=== PATIENT | female | born 1965 | race Caucasian/White ===

== ENCOUNTER 2024-04-02 14:06 | Outpatient (REF) | payer OTHER, SELFPAY | END 2024-04-02 14:07 | disposition home or self-care (01) | LOC: HO.HHCLNP 14:06 | PROVIDERS: Visit Provider Physician Assistant | DX: R07.0 Pain in throat (principal) | CPT/HCPCS: 87070 ==

== ENCOUNTER 2025-01-25 10:22 | Outpatient (REF) | payer BC, SELFPAY ==
[2025-01-25 10:41] LABS: MANUAL DIFF FLAG NO
[2025-01-25 11:13] LABS: Basophils Absolute Auto 0.1 X10*3/uL (0.0-0.2); Basophils Percent Auto 1.2 % (0-2); Eosinophils Absolute Auto 0.1 X10*3/uL (0.0-0.4); Eosinophils Percent Auto 1.2 % (0-4); Hematocrit 36.1 % (37.0-47.0); Hemoglobin 12.6 g/dl (12.0-16.0); Imm Gran Abs Auto 0.02 X10*3/uL (0.00-0.03); Imm Gran Pct Auto 0.4 % (0.0-0.4); Lymphocytes Percent Auto 35.5 % (20-40); Mean Corpuscular HGB Conc 34.9 g/dl (31.0-35.0); Mean Corpuscular Hemoglobin 33.1 pg (27.0-33.0); Mean Corpuscular Volume 94.8 fL (80.0-98.0); Mean Platelet Volume 10.2 fL (9.4-12.3); Monocytes Absolute Auto 0.5 X10*3/uL (0.1-1.2); Monocytes Percent Auto 9.4 % (2-11); Neutrophils Absolute Auto 2.9 x10*3/uL (2.0-8.3); Neutrophils Percent Auto 52.3 % (45-73); Platelet Count 323 X10*3/uL (160-400); Red Blood Count 3.81 X10*6/uL (4.20-5.50); White Blood Count 5.6 X10*3/uL (4.8-10.8)
[2025-01-25 11:45] LABS: Alanine Aminotransferase 12 U/L (0-31); Albumin Level 4.3 g/dL (3.5-5.0); Alkaline Phosphatase 72 U/L (39-117); Anion Gap 11 (12-20); Aspartate Amino Transferase 19 U/L (5-31); Bilirubin Total 1.3 mg/dL (0.0-1.0); Blood Urea Nitrogen 11 mg/dL (9-16); Carbon Dioxide 21 mmol/L (22-29); Chloride 106 mmol/L (96-108); Cholesterol 232 mg/dL (<200); Estimated Glomerular Filt Rate > 60; Glucose Random 102 mg/dL (60-115); HDL Cholesterol 56 mg/dL (>40); Iron 101 mcg/dL (30-160); LDL Cholesterol Calculated 157 mg/dL (<100); Percent Iron Saturation 30 % (15-50); Potassium 3.9 mmol/L (3.3-5.1); Sodium 134 mmol/L (135-145); Total Iron Binding Capacity 334 mcg/dL (228-428); Total Protein 7.5 g/dL (6.5-8.0); Triglycerides 99 mg/dL (<150); Unsaturated Iron Binding 233 ug/dL
[2025-01-25 12:16] LABS: Folate 6.6 ng/mL (> or = 4.0); Vitamin B12 870 pg/mL (200-900)
== END 2025-01-25 10:23 | disposition home or self-care (01) ==
LOC: HO.LAB 10:22
PROVIDERS: PCP Internal Medicine; Visit Provider Physician Assistant
DX: E53.8 Deficiency of other specified B group vitamins (principal); E87.5 Hyperkalemia; D50.8 Other iron deficiency anemias; I10 Essential (primary) hypertension
CPT/HCPCS: 36415; 80053; 80061; 82607; 82746; 83540; 85025

== ENCOUNTER 2025-09-03 14:45 | Outpatient (REF) | payer BC, SELFPAY ==
--- OUTSIDE RECORDS SUMMARY | 2024-05-06 03:30 | XMS_ITS ---
Author Organization [facility] Address [address] [facility] [address] [place] [address] Care Team Providers Care Food Service Steward Name Role Phone Cas Canseco DO Primary Care Provider CONRAD Lorenzo Unavailable [phone] Allergies Allergen (clinical drug ingredient) Drug/Non Drug Allergy documented on EMR Reaction Allergy Type Onset Date Status lisinopril Lisinopril cough Drug Allergy Activ e REASON FOR VISIT Right foot great toe pain Medications Medication SIG (Take, Route, Frequency, Duration) Notes Start Date End Date Status hydroCHLOROthiazide 12.5 MG 1 tablet in the morning Orally Once a day Active Omeprazole 40 MG 1 capsule 30 minutes before morning meal Orally Once a day Active SUMAtriptan Succinate 25 MG 1 tablet at least 2 hours between doses as needed Orally Twice a day Active Losartan Potassium-HCTZ 100-12.5 MG 1 tablet Orally Once a day Active Timoptic 0.5% solution Active Lisinopril 40 MG 1 tablet Orally Once a day Active Fluorometholone 0.1 % 1 drop into affected eye Ophthalmic Twice a day Active Naproxen 500 MG 1 tablet with food or milk as needed Orally every 12 hrs Active Acyclovir 400 MG 1 tablet Orally Twice a day Active oxyCODONE HCl 5 MG 1 tablet as needed Orally every 6 hrs Active Benzonatate 200 MG 1 capsule Orally Three times a day Active Ofloxacin 0.3 % as directed Ophthalmic Active predniSONE 10 MG 1 tablet Orally Once a day Active Aspirin 81 MG 1 tablet Orally Once a day Active Celecoxib 200 MG 1 capsule with food Orally Once a day Active Vitamin D3 25 MCG (1000 UT) 1 capsule Or ally Once a day Active Albuterol Sulfate HFA 108 (90 Base) MCG/ACT 1 puff as needed Inhalation every 4 hrs Active Dorzolamide HCl-Timolol Mal 2-0.5 % 1 drop into affected eye Ophthalmic Twice a day Active Famotidine 20 MG 1 tablet at bedtime as needed Orally Once a day Active Encounters Encounter Location Date Provider Diagnosis [facility] [address] [facility] [address] [place] [address] 05/06/2024 CONRAD WHITTAKER Plan Of Treatment No Information Progress Notes * Galileo ROCHAOB:1965 (60 yo F)Acc No.[id number]:05/06/2024 Consult note Patient: Marquez JIM Provider: Vivian Whittaker DPM :1965 A ge:58 Y S ex:Female Date:05/06/2024 Address:[address] [place] [id number] Pcp:Cas Canseco DO Subjective: * Chief Complaints: * 1 . Right foot great toe pain. * Medical History: H erpes zoster of right eye, Pain of left shoulder joint, Pain of left hip joint, Cough, gastroesophageal reflux disease (GERD), Vocal cord dysfunction, Laryngitis, Migraine, Breast cancer, Disorder of lung, Hypertension, Insomnia, Glaucoma, Cataract s/p lens replacement, Laryngopharyngeal reflux, Herpes labialis, Fatigue, Acute pharyngitis, Iron deficiency anemia, Pain in right foot, + COVID, COVID vaccinated X 4. * Surgical History: k bakari arthroscopy/surgery 12/28/2018, eye surgery 10/30/2013, breast surgery , . * Family History: S iblings: sister- breast cancer. * Medications: T aking Vitamin D3 25 MCG (1000 UT) Capsule 1 capsule Orally Once a day , Taking Albuterol Sulfate HFA 108 (90 Base) MCG/ACT Aerosol Solution 1 puff as needed Inhalation every 4 hrs , Taking Dorzolamide HCl-Timolol Mal 2-0.5 % Solution 1 drop into affected eye Ophthalmic Twice a day , Taking Famotidine 20 MG Tablet 1 tablet at bedtime as needed Orally Once a day , Taking Benzonatate 200 MG Capsule 1 capsule Orally Three times a day , Taking Ofloxacin 0.3 % Solution as directed Ophthalmic , Taking predniSONE 10 MG Tablet 1 tablet Orally Once a day , Taking Aspirin 81 MG Tablet Delayed Release 1 tablet Orally Once a day , Taking Celecoxib 200 MG Capsule 1 capsule with food Orally Once a day , Taking oxyCODONE HCl 5 MG Tablet 1 tablet as needed Orally every 6 hrs , Taking Lisinopril 40 MG Tablet 1 tablet Orally Once a day , Taking Fluorometholone 0.1 % Suspension 1 drop into affected eye Ophthalmic Twice a day , Taking Naproxen 500 MG Tablet 1 tablet with food or milk as needed Orally every 12 hrs , Taking Acyclovir 400 MG Tablet 1 tablet Orally Twice a day , Taking hydroCHLOROthiazide 12.5 MG Tablet 1 tablet in the morning Orally Once a day , Taking Omeprazole 40 MG Capsule Delayed Release 1 capsule 30 minutes before morning meal Orally Once a day , Taking SUMAtriptan Succinate 25 MG Tablet 1 tablet at least 2 hours between doses as needed Orally Twice a day , Taking Losartan Potassium- HCTZ 100-12.5 MG Tablet 1 tablet Orally Once a day , Taking Timoptic , Notes to Pharmacist: 0.5% solution * Allergies: L isinopril: cough. Objective: * Vitals: Therapeutic Interventions: Assessment: Plan: * Treatment: * Billing Information: * Visit Code: * Procedure Codes: * Electronic signature of OMID WHITTAKER D.P.M on 09/03/2025 at 05:51 PM EST Sign off status: Pending * Provider: Vivian Whittaker DPM Date: 0 05/06/2024 Generated for Barbara andersen/Nghia/Molly on: 11/03/2024 05:51 PM EST
--- NOTE | ~2025-09-03 | XR_ITS ---
EXAMINATION: XR CHEST 2 VIEWS HISTORY: ACUTE COUGH COMPARISON: There are no prior studies available for comparison. FINDINGS: PA and lateral views of the chest are submitted. The lungs are expanded and clear. There is no pleural effusion, pneumothorax, or pulmonary vascular congestion. The heart is normal in size. The bones are intact. There are surgical clips in the right axilla. XR/XR chest 2V IMPRESSION: Clear lungs. Electronically signed by: Preet Ko MD 09/03/2025 03:16 PM JAJA
--- OUTSIDE RECORDS SUMMARY | 2025-09-03 17:51 | XMS_ITS | Clinical Summary ---
Author Organization [facility] Address [address] [place] [address] Phone Care Team Providers Care Pc Maintenance Technician Name Role Phone Liza Pradhan MD Unavailable [phone] Cas Canseco DO Unavailable Cas Canseco DO Primary Care Provider [phone] Allergies Active Allergy Reactions Criticality Noted Date Comments Lisinopril 09/07/2020 Other reaction(s): Cough Medications acyclovir (ZOVIRAX) 400 MG tablet Take 400 mg by mouth 2 (two) times a day. 5 Active LORazepam (ATIVAN) 0.5 MG tablet Take 1 tablet by mouth nightly as needed. 0 Active fluorometholone (FML LIQUIFILM) 0.1 % ophthalmic suspension Place 1 drop into the right eye daily. 4 Active timolol (BETIMOL) 0.5 % ophthalmic solution Place 1 drop into the right eye daily. 5 Active losartan (COZAAR) 100 MG tablet losartan 100 mg tablet Active SUMAtriptan (IMITREX) 25 MG tabletIndicatio ns:as needed for migraines Indications: as needed for migraines Active omeprazole (PRILOSEC) 20 MG capsule Take 20 mg by mouth daily. 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 Overview (12/20/2014): Corticosteroid-induced glaucoma Herpes zoster 04/17/2013 Overview (12/20/2014): Herpes zoster; 5/11 Dry eyes 04/17/2013 Overview (12/20/2014): Dry eyes; SEVERE Uncoded H/O HTN - Hypertension 04/17/2013 Overview (12/20/2014): H/O HTN - Hypertension; NO LONGER AN ISSUE WITH NO MEDICATION Fatigue 04/17/2013 Overview (12/20/2014): Fatigue Keratitis 04/17/2013 Overview (12/20/2014): Keratitis; Right; STROMAL BRCA1 gene mutation negative 12/23/2012 Overview (12/20/2014): BRCA1 gene mutation negative BRCA2 gene mutation negative 12/23/2012 Overview (12/20/2014): BRCA2 gene mutation negative Pulmonary sarcoidosis 04/04/2012 Overview (12/20/2014): Pulmonary sarcoidosis Secondary malignant neoplasm 04/04/2012 Overview (12/20/2014): Metastatic cancer; Right; Supraclavicular node aspiration cytology positive Malignant neoplasm of right female breast 2002 Cancer Staging:Clinical stage from 08/15/2003:Stage IA(T1c, N0, M0) - Signed by Meet Franco MD on 06/18/2015 Pathologic stage from 10/06/2003:Stage IIA(T2, N0, cM0) - Signed by Meet Franco MD on 06/18/2015 Sites of Metastasis stage from 10/27/2006: Other Lung - Signed by Meet Franco MD on 06/18/2015 Indicators: HER 2: Negative, ER: Negative, AR: Negative - Signed by Meet Franco MD on 06/18/2015 Overview (12/20/2014): H/O Breast cancer; Right; S/P SURGERY. CHEMO, RADIATION Resolved Problems Problem Noted Date Diagnosed Date Resolved Date Glaucoma 11/07/2013 06/18/2015 Overview (12/20/2014): Glaucoma; Right; Shunt 08/02/2013 Immunizations Immunization Administration Dates Next Due COVID-19 (Pre-08/21) Pfizer Vaccine, mRNA, PF ,01/16/2021 Influenza Nasal, Unspecified Formulation 015 Pneumococcal polysaccharide PPSV23 09/05/2008 Family History Medical History Relation Comments Glaucoma Brother glaucoma Glaucoma Father glaucoma Ovarian cancer Paternal Aunt ovarian cancer Glaucoma Paternal Grandmother glaucoma Breast cancer Sister breast cancer Relation Status Comments Brother Father Paternal Aunt Paternal Grandmother Sister Social History Tobacco Use Types Packs/Day Years Used Date Smoking Tobacco: Former Cigarettes 1 5 0 06/18/1992 - 06/18/1997 Smokeless Tobacco: Never Alcohol Use Standard Drinks/Week Comments Not Asked 7 (1 standard drink = 0.6 oz pur e alcohol) Education Answer Date Recorded Are you interested in more education? Not on arlene e 03/04/2023 Are you concerned about learning? Not on file 03/04/2023 No 03/04/2023 No 03/04/2023 Digital Access Answer Date Recorded No 03/25/2023 No 03/25/2023 No 03/25/2023 Reliable internet access at home? Not on file 03/25/2023 Device with a working camera? Not on file Comments No Sex and Gender Information Value Date Recorded Sex Assigned at Female 11/06/2017 9:42 AM EST Legal Sex Female 5:47 PM EST Gender Identity Female Sexual Orientation Straight Last Filed Vital Signs Vital Sign Reading Time Taken Comments Blood Pressure 162/91 06/18/2015 10:48 AM EDT Pulse 59 06/18/2015 10:48 AM EDT Temperature 36.9 C (98.4 F) 06/18/2015 10:48 AM EDT Respiratory Rate 16 06/18/2015 10:48 AM EDT Oxygen Saturation - - Inhaled Oxygen Concentration - - Weight 75.8 kg (167 lb) 09/07/2020 9:30 AM EST Height 176 cm (5' 9.29 ) 09/07/2020 9:30 AM EST Body Mass Index 24.45 09/07/2020 9:30 AM EST Plan of Treatment Health Maintenance Due Date Last Done Comments DEPRESSION SCREENING 1975 SMOKING Hx and SMOKELESS TOBACCO SCREENING 1976 HEPATITIS C SCREENING 1981 HIV ONE-TIME SCREENING (18-65 YEARS) 1981 ZOSTER VACCINES (1 of 2) 1982 PAP SMEAR 1984 COLOGUARD 2008 COLONOSCOPY 2008 COLORECTAL CANCER SCREENING 2008 FIT TEST 2008 FOBT 2008 SIGMOIDOSCOPY 2008 VIRTUAL COLONOSCOPY 2008 PNEUMOCOCCAL VACCINES (50+ years) (2 of 2 - PCV) 09/05/2009 09/05/2008 RSV VACCINE (1 - Risk 50-74 years 1-dose series) 2013 MAMMOGRAM 06/18/2017 06/18/2015, 10/31, 04/30/2014, Additional history exists LIPID PANEL 01/15/2025 01/16/2020, 11/04/2009 INFLUENZA VACCINE (#1) 2025 , 08/30/2019, 08/29/2018 COVID-19 VACCINE ( season) 2025 02/06/2021, 01/16/2021 CREATININE LEVEL 02/24/2026 02/24/2025, 06/2013, 04/04/2012, Additional history exists POTASSIUM LEVEL 02/24/2026 02/24/2025, 07/0 06/2013, 04/04/2012, Additional history exists Adult Td,Tdap Booster 08/28/2030 08/28/2020 HEPATITIS A VACCINES Aged Out No long er eligible based on patient's age to complete this topic HIB VACCINES Aged Out No longer eligi ble based on patient's age to complete this topic MENINGOCOCCAL VACCINES (ACWY) Aged Out No longer eligible based on patient's age to complete this topic MENINGOCOCCAL VACCINES (B) Aged Out N o longer eligible based on patient's age to complete this topic Medical Devices Not on file Procedures Procedure Name Priority Date/Time Associated Diagnosis Comments COMPREHENSIVE METABOLIC PANEL (CMP) Routine 02/24/2025 10:39 AM EDT Diarrhea, unspecified type BI MAMMOGRAM SCREENING NO TOMOSYNTHESIS WITH CAD (BILATERAL) Routine 06/18/2015 9:43 AM EDT HISTORICAL LAB Routine 11/04/2009 8:56 AM EST from Last 3 Months or Most Recently Relevant to Health Maintenance Results * (ABNORMAL) Comprehensive metabolic panel (02/24/2025 10:39 AM EDT) SODIUM 137 133 - 146 mmol/L [facility] POTASSIUM 3.9 3.3 - 5.1 mmol/L [facility] CHLORIDE 102 96 - 108 mmol/L [facility] CO2 22 21 - 35 mmol/L [facility] BUN 12 6 - 19 mg/dL [facility] CREATININE 0.60 0.5 - 1.5 mg/dL [facility] GLUCOSE 100(H) 70 - 99 mg/dL [facility] ALBUMIN 4.4 3.9 - 4.8 g/dL [facility] TOTAL PROTEIN 7.6 6.5 - 8.0 g/dL [facility] CALCIUM 9.2 8.4 - 10.3 mg/dL [facility] ALKALINE PHOSPHATASE 74 39 - 117 U/L [facility] TOTAL BILIRUBIN 1.0 0.0 - 1.2 mg/dL [facility] AST 16 0 - 37 U/L [facility] ALT 14 0 - 40 U/L [facility] GLOBULIN 3.2 1 - 4.8 g/dL [facility] EGFR 102 >59 mL/min/1.7 3m2 [facility] Comment:Estimated glomerular filtration rate calculated using the CKD-EPI refit equation. ANION GAP 17 10 - 20 mmol/L [facility] Blood 02/24/2025 10:3 9 AM EDT 02/24/2025 10:44 AM EDT us Katelyn WETZEL LAB BLOOD BKR ORDERABLES Fi nal Result [address] [address] * Mammogram Screening With CAD (Bilateral) (06/18/2015 9:43 AM EDT) Anatomical Region Laterality Modality Breast Left, Breast Right, Breast Bilateral Bila teral Mammography Impressions 06/18/2015 12:20 PM EDT IMPRESSION: Left Breast - Category 1. Negative, no mammographic evidence of malignancy. Recommend normal-interval follow-up. Right Breast - Category 2. S/P lumpectomy and radiation therapy. Benign, no evidence of malignancy. Normal-interval follow-up is recommended in 12 months. The patient was given a written report at the time of the study. OVERALL ASSESSMENT - Category 2 BENIGN END OF IMPRESSION {MLxH} Narrative 06/18/2015 12:20 PM EDT INDICATION: History of right lumpectomy and radiation for breast cancer. Screening. No current complaints. TECHNIQUE: Digital Mammography was used to obtain images. Computer Aided detection was used to aid in interpretation. COMPARISON: Comparison is made with relevant prior imaging in PACS. Breast Composition: scattered areas of fibroglandular density FINDINGS: Left Breast: No significant masses, calcifications, or other abnormalities are seen. Right Breast: Post-treatment changes of prior upper outer lumpectomy and radiation are stable. Skin retraction and architectural distortion are present. Surgical clips project in the axilla. No significant masses, calcifications, or other abnormalities are seen. Procedure Note Aylcia Lew MD - 06/18/2015 INDICATION: History of right lumpectomy and radiation for breast cancer. Screening. No current complaints. TECHNIQUE: Digital Mammography was used to obtain images. Computer Aided detection was used to aid in interpretation. COMPARISON: Comparison is made with relevant prior imaging in PACS. Breast Composition: scattered areas of fibroglandular density FINDINGS: Left Breast: No significant masses, calcifications, or other abnormalities are seen. Right Breast: Post-treatment changes of prior upper outer lumpectomy and radiation are stable. Skin retraction and architectural distortion are present. Surgical clips project in the axilla. No significant masses, calcifications, or other abnormalities are seen. IMPRESSION: IMPRESSION: Left Breast - Category 1. Negative, no mammographic evidence of malignancy. Recommend normal-interval follow-up. Right Breast - Category 2. S/P lumpectomy and radiation therapy. Benign, no evidence of malignancy. Normal-interval follow-up is recommended in 12 months. The patient was given a written report at the time of the study. OVERALL ASSESSMENT - Category 2 BENIGN END OF IMPRESSION {MLxH} Meet Franco MD IMG MG EXAMS Final Res ult * (ABNORMAL) Historical Lab (11/04/2009 8:56 AM EST) CHOLESTEROL 238(Abnor cassius H) <200 mg/dL [facility] Comment: SLT HEMOLYSIS TRIGLYCERIDES 74 35 - 150 mg/dL [facility] Comment: SLT HEMOLYSIS HIGH DENS.LIPOPROT 63(Abnorm ally H) 40 - 60 mg/dL [facility] Comment: SLT HEMOLYSIS LDL (CALCULATED) 160(Abnor cassius H) 50 - 129 mg/dL [facility] Comment: SLT HEMOLYSIS VLDL (CALCULATED) 15 mg/dL [facility] Comment: SLT HEMOLYSIS 11/04/2009 8:56 AM EST 11/04/2009 9:13 AM EST Meet Franco MD LAB BLOOD ORDERABLES Alla l Result Performing Organization Address City/State/[facility] [place] [address] from Last 3 Months or Most Recently Relevant to Health Maintenance [place] [address] [place] [address] [employer] [facility] [employer] O Care Teams Pc Maintenance Technician Relationship Specialty Start Date End Date Cas Canseco DO [address] [place] [address] [email or web address] PCP - General Internal Medicine 08/10/20 Liza Pradhan MD [address] [place] [id number] Referring Physician Oncology 01/11/16 Cas Canseco DO [address] [place] [address] [email or web address] Insurance Assigned Provider 02/03/24 Additional Source Comments The information contained in this document represents components of the legal health record. It is not the complete legal health record.[facility]
--- OUTSIDE RECORDS SUMMARY | 2025-09-03 17:51 | XMS_ITS | Continuity of Care Document ---
Author Organization [facility], [facility] Address [address] [facility] [address] [place] [address] Assessment No assessment recorded. Plan of Treatment Reminders Order Date Submit Date Provider Last Modified By Organization Details Last Modified Time Details Appointments SDV 2024 02:00P M RASHARD BROWN Not available Not available Not available Lab None recorded. Referral None recorded. Procedures None recorded. Surgeries None recorded. Imaging XR, chest, 2 view 2024 025 [employer] Central Scheduling, [address] [place] [address], [id number], 09/03/2025 16:52:07 Medication Orders prednison e 10 mg tablet [address] [facility] #[id number], [address] [place], [address], 09/03/2025 14:19:08 codeine 10 mg-guaife nesin 100 mg/5 mL oral liquid [address] [facility] #[id number], [address] [place], [address], 09/03/2025 14:19:09 doxycycli ne hyclate 100 [address] tablet [address] [facility] #[id number], [address] [place], [address], 09/03/2025 14:19:08 Patient TargetsNo targets recorded. Patient InstructionsNo instructions recorded. Reason for Referral None Reported. Results Created Date Observation Date Name Description Value Unit Range Abnormal Flag Note LastModifiedBy Organization Detail LastModifiedTime 08/22/20 25 08/20/2025 MAMMO , scree paul, digit al, bilat eral No observ ation record ed. [email or web address] [facility] [address], [place], [address], 08/22/2025 16:16:52 09/03/20 25 09/03/2025 XR, chest , 2 view No observ ation record ed. [email or web address] [place] [address] Central Scheduling [address] [facility], [place], [address], 09/03/2025 16:46:58 Result Notes None recorded. 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 Not Available [facility] 3 08:08:16 [facility] hyperten jaylyn 84279179 Active 2017 RASHARD BROWN [address] [place] [address], [address], [facility] 5 09:36:51 Insomnia 485608015 Active 2017 Not Available [facility] 3 08:08:16 Glaucoma 10583728 Active 2017 Not Available [facility] 3 08:08:16 Cataract 619023417 Active 2017 s/p lens replaceme nt Not Available [facility] 3 08:08:16 Laryngop haryngea l reflux 352634249 Active 2017 cough Not Available [facility] 3 08:08:16 Herpes zoster 8263147 Active 2017 opthalmic us of rt eye Not Available [facility] 3 08:08:16 Pain of left shoulder joint 91032195145 556448 Active 2021 Not Available [facility] 3 08:08:16 Pain of left hip joint 21940723631 9100 Active 2021 Not Available [facility] 3 08:08:16 COVID-19 504152120 Active 2021 Not Available [facility] 3 08:08:17 Cough 40218243 Active 2021 Not Available [facility] 3 08:08:16 Gastroes ophageal reflux disease 810074650 Active 2021 Not Available [facility] 3 08:08:16 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 Not Available [facility] 3 08:08:16 Laryngit is 27154244 Active 2021 Not Available [facility] 3 08:08:16 Chronic cough 83662925 Active 2021 Not Available [facility] 3 08:08:17 Migraine 84451998 Active 2021 Not Available [facility] 3 08:08:16 Herpes labialis 9858606 Active 2022 Not Available [facility] 3 08:08:16 Carcinom a of breast 941911743 Active 2022 Not Available [facility] 3 08:08:16 Fatigue 57066203 Active 2022 Not Available [facility] 3 08:08:17 Pain in throat 204569332 Active 2023 RASHARD BROWN [address] [place], [address], [facility] 4 11:02:16 Malignan t neoplasm of breast 528574780 Active 2023 RASHARD BROWN [address] [place], [address], [facility] 4 11:02:38 Acute pharyngi tis 158557349 Active 2023 RASHARD BROWN [address] [place], [address], [facility] 4 11:02:47 Iron deficien cy anemia 70711742 Active 2023 RASHARD BROWN [address] [place], [address], [facility] 4 11:05:39 Pain in right foot 13137176077 9107 Active 2023 RASHARD BROWN [address] [place], [address], [facility] 4 11:08:52 Cobalami n deficien cy 738392225 Active 2023 RASHARD BROWN [address] [place] [address], [address], [facility] 4 16:47:11 Hyperkal emia 63588360 Active 2023 RASHARD BROWN [address] [place] [address], [address], [facility] 4 16:49:02 Avulsion of toenail of left foot 65000579092 180895 Active 2023 RASHARD BROWN [address] [place] [address], [address], [facility] 4 14:03:24 Diarrhea 23571222 Active 2024 RASHARD BROWN [address] [place] [address], [address], [facility] 5 09:31:27 Generali zed abdomina l pain 076625338 Active 2024 RASHARD BROWN [address] [place] [address], [address], [facility] 5 09:32:21 Acute cough Active 2024 RASHARD BROWN [address] [place] [address], [address], [facility] 5 14:15:32 Tight chest 89264751 Active 2024 RASHARD BRONW [address] [place], [address], [facility] 5 14:15:49 Problem Notes None recorded. Procedures Surgical History Date Name Laterality Status Provider Name and Address Organization Details Recorded Time 05/01/20 25 Colonoscopy completed Cas Canseco DO [address] [place] [address], [address], [facility] 05/01/2025 19:18:50 12/29/19 19 Knee arthroscopy/jeremy alireza completed [address], [address], [facility] 04/10/2019 09:17:10 10/30/19 14 Eye Surgery completed [address], [address], [facility] 09/12/2018 09:35:26 Breast Surgery completed [facility] 01/23/2018 16:25:55 delivery completed [facility] 01/23/2018 16:27:01 Imaging Results None recorded. Procedure Notes None recorded. Medical Equipment None Reported. Allergies Allergen ID Allergen Name Allergen Category Reaction Reaction Severity Criticality Documentation Date Start Date Code Code System Note Provider Name and Address Organization Details Recorded Time 712 lisinopri l medicatio n cough Not available Not available 01/23/2018 53[address] RxNorm RASHARD BROWN [address] [place], [address], [facility] 5 09:37:02 Medications Name Sig Start Date Stop Date Status Note LastModified by Organization Details LastModified Time flucelvax quadrival ent susp 11/20 completed Not Available Not Available Not Available omeprazol e dr 40 mg cpdr 01/16 completed Not Available Not Available Not Available acyclovir 400 mg tabs 11/20 completed Not Available Not Available Not Available fluoromet holone 0.1 % susp 11/20 completed Not Available Not Available Not Available lisinopri l 40 mg tabs 01/16 completed Not Available Not Available Not Available oxycodone hydrochlo ride 5 mg tabs 11/20 completed Not Available Not Available Not Available losartan potassium 100 mg tabs 11/20 completed Not Available Not Available Not Available timoptic ocudose 0.5 % soln 11/20 completed Not Available Not Available Not Available losartan potassium /hydrochl orothiazi de 100-12.5 mg tabs 11/20 completed Not Available Not Available Not Available sumatript an succinate 25 mg tabs 01/16 completed Not Available Not Available Not Available hydrochlo rothiazid e 12.5 mg tabs 11/20 completed Not Available Not Available Not Available naproxen 500 mg tabs 11/20 completed Not Available Not Available Not Available losartan 50 mg tablet TAKE 2 TABLETS BY MOUTH EVERY DAY needs appt for further refills. call office no 90 day supply 02/09 completed Not Available Not Available Not Available celecoxib 200 mg capsule TAKE 1 CAPSULE BY MOUTH EVERY DAY 07/26 completed Not Available Not Available Not Available amoxicill in 500 mg capsule TAKE 1 CAPSULE BY MOUTH TWICE A DAY FOR 10 DAYS 04/02 completed Not Available Not Available Not Available aspirin 81 mg capsule Take 1 capsule every day by oral route. 10/08 completed Not Available Not Available Not Available prednison e 10 mg tablet 50 mg x 3 days40 mg x 3 days30 mg x 3 days20 mg x 3 days10 mg x 3 days 2024 active Not Available Not Available Not Avai lable azithromy dominique 250 mg tablet TAKE 2 TABLETS BY MOUTH TODAY, THEN TAKE 1 TABLET DAILY FOR 4 DAYS DIRECTED 04/23 completed Not Available Not Available Not Available ofloxacin 0.3 % eye drops INSTILL ONE DROP IN RIGHT EYE FOUR TIMES A DAY FOR 7 DAYS 04/02 completed Not Available Not Available Not Available benzonata te 200 mg capsule TAKE 1 CAPSULE BY MOUTH THREE TIMES A DAY FOR 7 DAYS 06/21 completed Not Available Not Available Not Available sumatript an 25 mg tablet TAKE 1 TABLET BY MOUTH AT THE ONSET OF SYMPTOMS . active Not Available Not Available No t Available cyanocoba luz (vit B-12) 1,000 mcg tablet Take 1 tablet every day by oral route for 30 days. 2023 active Not Available Not Available Not Avai lable acyclovir 400 mg tablet TAKE 1 TABLET BY MOUTH EVERY DAY active Not Available Not Available No t Available ciproflox acin 500 mg tablet TAKE 1 TABLET BY MOUTH EVERY 12 HOURS FOR 7 DAYS 02/09 completed Not Available Not Available Not Available omeprazol e 40 mg capsule,d elayed release TAKE 1 CAPSULE BY MOUTH TWICE A DAY 2023 active Not Available Not Available Not Avai lable amoxicill in 500 mg tablet 04/02 completed Not Available Not Available Not Available famotidin e 20 mg tablet TAKE 1 TABLET BY MOUTH EVERY DAY NEEDED 09/01 completed Not Available Not Available Not Available cephalexi n 500 mg capsule Take 1 capsule every 6 hours by oral route as directed for 7 days. 05/22 completed Not Available Not Available Not Available pantopraz ole 40 mg tablet,de layed release TAKE 1 TABLET BY MOUTH EVERY DAY 07/26 completed Not Available Not Available Not Available fluoromet holone 0.1 % eye drops,wisam pension INSTILL 1 DROP INTO RIGHT EYE ONCE DAILY. active Not Available Not Available No t Available dorzolami de 22.3 mg-timolo l 6.8 mg/mL eye drops INSTILL 1 DROP INTO THE RIGHT EYE TWICE DAILY active Not Available Not Available No t Available codeine 10 mg-guaife nesin 100 mg/5 mL oral liquid Take 10 mL every 4 hours by oral route as directed for 7 days. 2024 active Not Available Not Available Not Avai lable methylpre dnisolone 4 mg tablets in a dose pack TAKE 6 TABLETS ON DAY 1 DIRECTED ON PACKAGE AND DECREASE BY 1 TAB EACH DAY FOR A TOTAL OF 6 DAYS 06/21 completed Not Available Not Available Not Available albuterol sulfate HFA 90 mcg/actua tion aerosol inhaler INHALE 2 PUFFS INTO THE LUNGS EVERY 4 HOURS. active Not Available Not Available No t Available lisinopri l 40 mg tablet TAKE 1 TABLET BY MOUTH EVERY DAY DIRECTED 06/11 completed Pt develope d chronic cough Not Available Not Available Not Available losartan 100 mg tablet TAKE 1 TABLET BY MOUTH EVERY DAY. NEEDS APPT FOR FURTHER REFILLS CALL OFFICE active Not Available Not Available No t Available doxycycli ne hyclate 100 mg tablet Take 1 tablet twice a day by oral route for 10 days. 2024 active Not Available Not Available Not Avai lable naproxen 500 mg tablet Take 1 tablet twice a day by oral route for 15 days. 11/20 completed Not Available Not Available Not Available oxycodone 5 mg tablet 04/10 completed Not Available Not Available Not Available Laxative (bisacody l) 5 mg tablet,de layed release TAKE 2 TABLETS BY MOUTH RIGHT BEFORE BEGINNIN G BOWEL PREP. SEE INSTRUCT IONS PROVIDED BY THE OFFICE active Not Available Not Available No t Available Vitamin D3 25 mcg (1,000 unit) capsule Take 1 capsule every day by oral route. active Not Available Not Available No t Available Timoptic Ocudose (PF) 0.5 % eye drops in a dropperet te 09/01 completed Not Available Not Available Not Available Boostrix Tdap 2.5 Lf unit-8 mcg-5 Lf/0.5 mL intramusc ular syringe 02/09 completed Not Available Not Available Not Available losartan 100 mg-hydroc hlorothia zide 12.5 mg tablet TAKE 1 TABLET BY MOUTH EVERY DAY active Not Available Not Available No t Available timolol One drop in right eye once a day 09/12 completed Not Available Not Available Not Available hydrochlo rothiazid e 12.5 mg tablet Take 1 tablet every day by oral route. 10/08 completed Not Available Not Available Not Available GaviLyte- G 236 gram-22.7 4 gram-6.74 gram-5.86 gram oral solution PLEASE SEE ATTACHED FOR DETAILED DIRECTIO NS active Not Available Not Available No t Available dorzolami de-timolo l (PF) 2 %-0.5 % eye drops in a dropperet te INSTILL 1 DROP TWICE PER DAY TO THE RIGHT EYE active Not Available Not Available No t Available Plenvu 140 gram-9 gram-5.2 gram powder packs TAKE 3 PACKET BY MOUTH DIRECTED FOLLOW INSTRUCT IONS GIVEN BY OFFICE 02/09 completed Not Available Not Available Not Available Flucelvax Quad 60 mcg (15 mcg x 4)/0.5 mL intramusc ular susp 11/20 completed Not Available Not Available Not Available Paxlovid 300 mg (150 mg x 2)-100 mg tablets in a dose pack TAKE DIRECTED BY PACKAGE 01/27 completed Not Available Not Available Not Available Vitals Date Recorded Body height Body mass index (BMI) Body weight Heart rate Oxygen saturation Oxygen saturation in Arterial blood by Pulse oximetry Systolic And Diastolic Provider Name and Address Organization Details Last Updated DateTime 5 175.26 cm 25.8 kg/m2 15653.6 6 g 68 /min 98 % 98 % 128/68 mm[Hg] [facility] 5 14:01:45 Social History Question Answer Notes LastModified by Organizat ion Details LastModified Time Tobacco Smoking Status Former Smoker Not Available [facility] 09/01/2020 03:36:23 What Was The Date Of Your Most Recent Tobacco Screening? 09/03/2025 [email or web address] Information not available 09/03/2025 How Many Years Have You Smoked Tobacco? 5 [id number] Information not available 09/01/2020 Sex: Unknown Functional Status Question Answer Note LastModified by Organization D etails LastModified Time Do you or have you ever used any other forms of tobacco or nicotine? No [email or web address] Information not available 09/01/2023 Mental Status None recorded. Family History Relationship Description Onset Age of this Age Resolved Age Notes LastModified by Organization Details LastModified Time Paternal Aunt Malignant neoplasm of ovary [email or web address] Not available 11/20 16:01:30 Sister Malignant neoplasm of breast [email or web address] Not available 11/20 16:01:37 Sister Malignant neoplasm of breast [email or web address] Not available 2021 10:10:05 Unspecified Relation Malignant neoplasm of breast cousin [email or web address] Not available 11/20 16:02:09 Medical History No medical history recorded. Gynecological HistoryNo gynecological history recorded. Obstetrics History GPAL:G 0 P 0 0 0 0 Immunizations Vaccine Type Date Status Note Provider Nam e and Address Organization Details Recorded Time COVID-19, mRNA, LNP-S, PF, 30 mcg/0.3 mL dose 1 completed Cas Canseco, [address] [place], [address], [facility] 09/22/2021 15:39:00 COVID-19, mRNA, LNP-S, PF, 30 mcg/0.3 mL dose [facility] 08:36:38 COVID-19, mRNA, LNP-S, PF, 30 mcg/0.3 mL dose [facility] 02/08/2022 08:36:45 Influenza, split virus, quadrivalent, preservative 0 [facility] 02/08/2022 08:37:06 Tdap 0 completed Ashly Abdi [facility] 02/08/2022 08:37:29 COVID-19, mRNA, LNP-S, PF, 30 mcg/0.3 mL dose 2 completed Ashly Abdi [facility] 08/24/2022 07:55:11 Influenza, split virus, quadrivalent, preservative 8 completed January JENISE Olsen [address] [place] [address], [address], [facility] 09/12/2018 09:36:47 influenza, unspecified formulation 3 completed Rolo Canseco [facility] 10/27/2023 08:18:22 influenza, unspecified formulation 5 completed Miriam Irizarry [facility] 11/08/2024 08:31:55 Influenza, split virus, quadrivalent, preservative 9 completed January JENISE Olsen [address] [place] [address], [address], [facility] 11/20/2019 15:56:33 Tdap 0 completed Cas Canseco, [address] [place] [address], [address], [facility] 08/30/2020 14:17:37 Past Encounters Encounter ID Performer Location Encounter Start Date Encounter Closed Date Diagnosis/Indication Diagnosis SNOMED-CT Code Diagnosis ICD10 Code Diagnosis IMO Codes Diagnosis Note [id number] Cas Canseco DO [facility] [address] [facility],[place] [address] 09/03/2025 13:56:04 09/03/2025 16:52:07 Acute cough 4872645697 41531622 R05.6 2636427159 Tight chest 84367362 R07 .89 411502 Health Concerns Section Related Observation LastModified by Organization Detai ls LastModified Time None Recorded Concern Status LastModified by Organization Details LastModified Time None Recorded Payers Encounter Date Sequence Insurance Name Policy Number Policy Nugent Covered Member ID Nugent Member ID Guarantor Name 09/03/2025 1 [facility] [id number] Marquez Rocha [id number] Marquez Rocha Notes Date Note Type Note Provider Name a nd Address Organization Details Recorded Time 09/03/2025 text/html ROS as noted in the HPI c.o cough x 6 weeks the patient has had a cough for 6 weeksdry, lingering persistant coughhx of asthma has had screenings done prior that didn't show any sig lung conditions worsened this past week, congestion, sob, increasing coughstill dry recommended XR for acute change in coughwill also start on medications for treatment RASHARD BROWN [address] [facility], [place], [address], [facility] 09/03/2025 14:23:14 OBGyn Episode No OBEpisode recorded.
--- OUTSIDE RECORDS SUMMARY | 2025-09-03 17:51 | XMS_ITS | Clinical Summary ---
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 Active omeprazole (PriLOSEC) [address] capsule Take 1 capsule (40 mg total) by mouth 1 (one) time each day. Active losartan (COZAAR) 100 mg tablet Take 1 tablet (100 mg total) by mouth 1 (one) time each day. Active cyanocobalamin (VITAMIN B-12) 100 mcg tablet Take 1 tablet (100 mcg total) by mouth 1 (one) time each day. Active acyclovir (ZOVIRAX) 400 mg tablet Take 1 tablet (400 mg total) by mouth. Active lisinopril (PRINIVIL,ZESTR IL) 40 mg tablet Take 1 tablet (40 mg total) by mouth 1 (one) time each day. Active ferrous sulfate 325 mg (65 mg elemental iron) tablet Take 1 tablet (325 mg total) by mouth 1 (one) time each day with breakfast. Active polyethylene glycol (Golytely) 236-22.74-6.74 -5.86 gram solution Take 4L by mouth once for one dose. May substitue any PEG. Starting at 6PM the night before your procedure drink 1 8oz glasses at your own pace until you complete half of the gallon. Finish 2nd half of the gallon 5 hours before your procedure. 4000 mL 5 Active bisacodyL (DULCOLAX) 5 mg EC tablet Take 2 tablets by mouth right before beginning bowel prep. See instructions provided by the office 2 tablet 5 Active Additional Information Patient not taking.Reported on 07/11/2025 cholecalciferol (VITAMIN D-3) 25 mcg (1,000 unit) tablet Take 1 tablet (1,000 Units total) by mouth 1 (one) time each day. Active famotidine (PEPCID) 20 mg tablet 1 tablet (20 mg total) 1 (one) time each day at the same time. Active dorzolamide-addi oloL (COSOPT) 22.3-6.8 mg/mL ophthalmic solution INSTILL 2 DROP INTO RIGHT EYE TWICE A DAY Active fluorometholone (FML) 0.1 % ophthalmic suspension PLACE 1 DROP INTO RIGHT EYE ONCE DAILY 4 Active saccharomyces boulardii (FLORASTOR) 250 mg capsule Take 1 capsule (250 mg total) by mouth 2 (two) times a day. Active Active Problems Problem Noted Date Diagnosed Date Diarrhea 02/24/2025 Generalized abdominal pain 02/24/2025 Avulsion of toenail of left foot 05/17/2024 Acute pharyngitis 04/02/2024 Iron deficiency anemia 04/02/2024 Pain in right foot 04/02/2024 Pain in throat 04/02/2024 Herpes labialis 05/15/2023 Chronic cough 07/26/2022 Laryngitis 07/12/2022 Vocal cord dysfunction 07/12/2022 COVID-19 06/10/2022 Pain in joint of left shoulder 02/09/2022 Left knee pain 08/27/2020 Carcinoma of breast (CMS/HCC V24, CMS/HCC V28) 0 01/23/2018 Overview (07/07/2025): Triple negative, 2002,2005 recurrence. 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 Overview (07/07/2025): Corticosteroid-induced glaucoma Dry eyes 04/17/2013 Overview (07/07/2025): Dry eyes; SEVERE Fatigue 04/17/2013 Overview (07/07/2025): Fatigue Keratitis 04/17/2013 Overview (07/07/2025): Keratitis; Right; STROMAL Pulmonary sarcoidosis ([facility] V24) 04/04/2012 Overview (07/07/2025): Pulmonary sarcoidosis Secondary malignant neoplasm ([facility] V24, [facility]/ [facility] V28) 04/04/2012 Overview (07/07/2025): Metastatic cancer; Right; Supraclavicular node aspiration cytology positive Cobalamin deficiency Overview (04/08/2025): DX:Cobalamin deficiency GERD (gastroesophageal reflux disease) Overview (04/08/2025): DX:GERD (gastroesophageal reflux disease) Glaucoma Overview (04/08/2025): DX:Glaucoma HTN (hypertension) Overview (04/08/2025): DX:HTN (hypertension) Herpes zoster Overview (04/08/2025): DX:Herpes zoster Hyperkalemia Overview (04/08/2025): DX:Hyperkalemia Migraine Overview (04/08/2025): DX:Migraine Encounters Date Type Department Care Team Description 07/11/2025 8:50 AM EDT Office Visit Gastroenterology - [address] [place] [id number] Liza Edwards PA Irritable bowel syndrome with diarrhea (Primary Dx) from Last 3 Months Surgical History Surgery Date Site/Laterality Comments COLONOSCOPY 10/11/2021 TA x 1, recall 5 years ESOPHAGOGASTRODUODENOSCOPY 10/11/2021 Normal exam COLONOSCOPY 08/31/2016 10-year recall SECTION BREAST LUMPECTOMY secondary to breast cancer Medical History Medical History Date Comments Migraine DX:Migraine Hyperkalemia DX:Hyperkalemia HTN (hypertension) DX:HTN (hyper tension) Herpes zoster DX:Herpes zoster Cobalamin deficiency DX:Cobalami n deficiency GERD (gastroesophageal reflux disease) DX:GERD (gastroesophageal reflux disease) Glaucoma DX:Glaucoma Family History Medical History Relation Name Comments Malignant neoplasm of ovary (CMS/HCC V24, CMS/HCC V28) Other Colon cancer Neg Hx Colon polyps Neg Hx Relation Name Status Comments Other Social History Tobacco Use Types Packs/Day Years Used Date Smoking Tobacco: Never Tobacco Cessation:Counseling Given: Not Answered Alcohol Use Standard Drinks/Week Comments Yes 0 (1 standard drink = 0.6 oz pur e alcohol) wine everyday Interpersonal Safety Answer Date Record ed Physical Abuse Unrecognized value 05/01/2025 Verbal Abuse Unrecognized value 05/01/2025 Comments No Sex and Gender Information Value Date Recorded Sex Assigned at Female 03/20/2025 2:31 PM EDT Legal Sex Female 9:43 PM EST Gender Identity Female 03/20/2025 2:31 PM EDT Sexual Orientation Not on file Obstetrics History Last Filed Vital Signs Vital Sign Reading Time Taken Comments Blood Pressure 160/80 05/01/2025 2:38 PM EDT Pulse 60 05/01/2025 2:38 PM EDT Temperature 36.8 C (98.3 F) 05/01/2025 1:27 PM EDT Respiratory Rate 19 05/01/2025 2:38 PM EDT Oxygen Saturation 99% 05/01/2025 2:38 PM EDT Inhaled Oxygen Concentration - - Weight 75.8 kg (167 lb) 07/11/2025 8:48 AM EDT Height 177.8 cm (5' 10 ) 07/11/2025 8:48 AM EDT Body Mass Index 23.96 07/11/2025 8:48 AM EDT Plan of Treatment Health Maintenance Due Date Last Done Comments Zoster Vaccines (1 of 2) 1982 Cervical Cancer Screening: Pap Smear 1984 Pneumococcal Vaccine: 50+ Years (2 of 2 - PCV) 09/05/2009 09/05/2008, 09/05/2008 Cholesterol Screening (Lipid Panel) 10/12/2022 HIV Screening 10/12/2022 Hepatitis C Screening 10/12/2022 Social Influencers of Health Screening 10/12/2022 Depression Screening 10/30/2024 Breast Cancer Screening 11/25/2024 11/25/19 23, 08/06/2021, 06/18/2015 COVID-19 Vaccine ( season) 2025 10/25/2023, 08/19/2022, 09/20/2021, Additional history exists Influenza Vaccine (#1) 2025 , 10/25/2023, 08/31/2022, Additional history exists Hypertension/CHF/CAD Annual BMP Blood Test 02/24/2026 02/24/2025 DTaP,Tdap,and Td Vaccines (4 - Td or Tdap) 08/28/2030 08/28/2020, 04/29/2016, 04/16/2007 Colorectal Cancer Screening: Colonoscopy 05/06/2035 05/06/2025, 05/01/2025 RSV Immunization Adult Patients (1 - 1-dose 75+ series) 2038 HIB Vaccines Aged Out No longer eligi ble based on patient's age to complete this topic HPV Vaccines Aged Out No longer eligi ble based on patient's age to complete this topic Hepatitis A Vaccines Aged Out No long er eligible based on patient's age to complete this topic Hepatitis B Vaccines Aged Out No long er eligible based on patient's age to complete this topic IPV Vaccines Aged Out No longer eligi ble based on patient's age to complete this topic MMR Vaccines Aged Out No longer eligi ble based on patient's age to complete this topic Meningococcal ACWY Vaccine Aged Out N o longer eligible based on patient's age to complete this topic Meningococcal B Vaccine Aged Out No l onger eligible based on patient's age to complete this topic RSV Immunization Patients Under 20 months Aged Out No longer eligible based on patient's age to complete this topic Varicella Vaccines Aged Out No longer eligible based on patient's age to complete this topic Procedures Procedure Name Priority Date/Time Associated Diagnosis Comments COLONOSCOPY Routine 05/06/2025 10:30 AM EDT ALEXIS SCREENING DIGITAL Routine 11/25/2022 3:32 PM EST Encounter for screening mammogram for malignant neoplasm of breast from Last 3 Months or Most Recently Relevant to Health Maintenance Results * COLONOSCOPY (05/06/2025 10:30 AM EDT) Anatomical Region Laterality Modality Endoscopy us Historical Provider MD DEL VALLE~PROCEDURE ORDERABLES F inal Result * ALEXIS SCREENING DIGITAL (11/25/2022 3:32 PM EST) Anatomical Region Laterality Modality Mammography 11/25/2022 1:46 PM EST Narrative 11/25/2022 3:32 PM EST [facility] Diagnostic Imaging Department [address] [place], [place] [id number] Patient: ISIDRAMARQUEZ /Age/Sex: 1965 - 57 - F Unit#: [id number] Location/Status: [facility] CLI [facility]em[facility] Order[facility] Physician: KARTHIK MANDEL Alexis Screening Digital - 11/25/22 - 0244 INDICATION: SCREENING COMPARISON: [facility] and outside mammograms dating back to 06/18/2015 TECHNIQUE: CC and MLO views of the breasts were obtained, using full field digital mammography with 3D tomosynthesis views in the MLO projection. XCCL view of the right breast was obtained. 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 Personal history of right breast carcinoma diagnosed in 2002, and recurrence in 2005 treated with lumpectomy and radiation. FINDINGS: The breasts contain scattered fibroglandular tissues. Asymmetry and architectural distortion again visualized at the lumpectomy site within the axillary tail region of the right breast. Metallic clips are present within the right axilla. No evidence of suspicious mass, suspicious clustering microcalcification, or secondary sign of malignancy within either breast. IMPRESSION: No specific mammographic evidence of breast malignancy. Lack of an imaging correlate should not deter or delay biopsy of a clinically significant palpable finding. BI-RADS - Category 2 - Benign finding 3342F, 7025F Annual screening mammography is recommended. Patient entered into a reminder system with a target date for the next mammogram. [id number] / [id number]) , [id number] Dictating Physician: POPPY MCCALL MD Electronically Signed by: POPPY MCCALL MD Dic Date/Time: 11/25/22 1527 Sign date/Time: 11/25/22 1532 Procedure Note Poppy Mccall MD - 12/01/2023 [facility] Diagnostic Imaging Department [address] [place] [id number] Patient: MARQUEZ ROCHA /Age/Sex: 1965 - 57 - F Unit#: [id number] Location/Status: [facility] CLI Mnemonic/Ordering Site: [facility] Ordering Physician: KARTHIK MANDEL Alexis Screening Digital - 11/25/22 - 1414 INDICATION: SCREENING COMPARISON: [facility] and outside mammograms dating back to 06/18/2015 TECHNIQUE: CC and MLO views of the breasts were obtained, using full field digital mammography with 3D tomosynthesis views in the MLO projection. XCCL viewof the right breast was obtained. 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 Personal history of right breast carcinoma diagnosed in 2002, andrecurrence in 2005 treated with lumpectomy and radiation. FINDINGS: The breasts contain scattered fibroglandular tissues. Asymmetry and architectural distortion again visualized at the lumpectomysite within the axillary tail region of the right breast. Metallic clips arepresent within the right axilla. No evidence of suspicious mass, suspicious clustering microcalcification,or secondary sign of malignancy within either breast. IMPRESSION: No specific mammographic evidence of breast malignancy. Lack of an imaging correlate should not deter or delay biopsy of aclinically significant palpable finding. BI-RADS - Category 2 - Benign finding 3342F, 7025F Annual screening mammography is recommended. Patient entered into a reminder system with a target date for the next mammogram. [id number] / [id number]) , [id number] Dictating Physician: POPPY MCCALL MD Electronically Signed by: POPPY MCCALL MD Dic Date/Time: 11/25/22 1527 Sign date/Time: 11/25/22 1532 us Cas A Bigda DO IMG BI PROCEDURES Final Result from Last 3 Months or Most Recently Relevant to Health Maintenance Insurance [facility] Care Teams Finish Painter Relationship Specialty Start Date End Date Cas Canseco DO [address] [place] [id number] PCP - General Internal Medicine 04/18/25
--- OUTSIDE RECORDS SUMMARY | 2025-09-03 17:51 | XMS_ITS | Patient Health Record ---
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 Name Role Phone Cas Canseco DO Primary Care Provider CONRAD Lorenzo Unavailable [phone] Allergies Allergen (clinical drug ingredient) Drug/Non Drug Allergy documented on EMR Reaction Allergy Type Onset Date Status lisinopril Lisinopril cough Drug Allergy Activ e Reason For Referral No Information Medications Medication SIG (Take, Route, Frequency, Duration) Notes Start Date End Date Status Aspirin 81 MG 1 tablet Orally Once a day Active Lisinopril 40 MG 1 tablet Orally Once a day Active Vitamin D3 25 MCG (1000 UT) 1 capsule Or ally Once a day Active Fluorometholone 0.1 % 1 drop into affected eye Ophthalmic Twice a day Active Albuterol Sulfate HFA 108 (90 Base) MCG/ACT 1 puff as needed Inhalation every 4 hrs Active Naproxen 500 MG 1 tablet with food or milk as needed Orally every 12 hrs Active Dorzolamide HCl-Timolol Mal 2-0.5 % 1 drop into affected eye Ophthalmic Twice a day Active Acyclovir 400 MG 1 tablet Orally Twice a day Active Famotidine 20 MG 1 tablet at bedtime as needed Orally Once a day Active hydroCHLOROthiazide 12.5 MG 1 tablet in the morning Orally Once a day Active Benzonatate 200 MG 1 capsule Orally Three times a day Active Omeprazole 40 MG 1 capsule 30 minutes before morning meal Orally Once a day Active Ofloxacin 0.3 % as directed Ophthalmic Active SUMAtriptan Succinate 25 MG 1 tablet at least 2 hours between doses as needed Orally Twice a day Active predniSONE 10 MG 1 tablet Orally Once a day Active Losartan Potassium-HCTZ 100-12.5 MG 1 tablet Orally Once a day Active Timoptic 0.5% solution Active Celecoxib 200 MG 1 capsule with food Orally Once a day Active oxyCODONE HCl 5 MG 1 tablet as needed Orally every 6 hrs Active Plan Of Treatment No Information Medical (General) History Medical History History ICD Code herpes zoster of right eye pain of left shoulder joint pain of left hip joint cough gastroesophageal reflux disease (GERD) vocal cord dysfunction laryngitis migraine breast cancer disorder of lung hypertension insomnia glaucoma cataract s/p lens replacement laryngopharyngeal reflux herpes labialis fatigue acute pharyngitis iron deficiency anemia pain in right foot + COVID COVID vaccinated X 4 Surgical History Surgery Date(Month/Year) knee arthroscopy/surgery 12/28/2018 eye surgery 10/30/2013 breast surgery
--- OUTSIDE RECORDS SUMMARY | 2025-09-03 17:52 | XMS_ITS | Data Portability ---
Author Organization [facility], Telehealth Patient Home Address [address] [place] [address] Assessment No assessment recorded. Plan of Treatment Reminders Order Date Submit Date Provider Last Modified By Organization Details Last Modified Time Details Appointments SDV 2024 02:00P M RASHARD BROWN Not available Not available Not available Lab CBC w/ auto diff 2024 025 [facility], [address] [place] [address], [address], 02/24/2025 13:37:01 iron + TIBC + ferritin, serum 2024 025 [facility], [address] [place] [address], [address], 02/24/2025 09:46:43 amylase + lipase, serum 2024 025 [facility], [address] [place] [address], [address], 02/24/2025 09:46:43 gamma-glu tamyl transfera se (ggt), serum 2024 025 [facility], [address] [place] [address], [address], 02/24/2025 09:46:43 ESR (erythroc yte sedimenta tion rate), blood 2024 025 [facility], [address] [place] [address], [address], 02/24/2025 14:28:41 C-reactiv e protein, quantitat gabe, serum or plasma 2024 025 [facility], [address] [place] [address], [place], [address], 02/24/2025 09:46:43 CMP, serum or plasma 2024 025 [facility], [address] [place] [address], [place], [address], 02/24/2025 09:46:43 CMP, serum or plasma 2023 024 [facility] (Centralized Electronic Ordering - All Locations), Patient Can Go To The Location Of Their Choice, [id number] 05/24/2024 10:15:42 Referral podiatris t referral 2023 024 [email or web address] Not available 05/28/2024 10:36:24 Procedures None recorded. Surgeries None recorded. Imaging XR, chest, 2 view 2024 [email or web address] [facility], [address] [place] [address], [place], [address], 09/03/2025 16:52:07 CT, abdomen + pelvis, w/o contrast - Not Required Procedure codes: 91971 Call Reference #: [id number] Resolutio n: Completed on at 08:50 am. Call ref #[id number]. 2024 025 [email or web address] [facility], [address] [facility], [facility] [address], [place], [address], 02/28/2025 09:27:22 Medication Orders prednison e 10 mg tablet 2024 025 [facility], [address] [place] [address], [place], [address], 09/03/2025 14:19:08 codeine 10 mg-guaife nesin 100 mg/5 mL oral liquid 2024 025 [facility]0315, [address] [place], [address], 09/03/2025 14:19:09 doxycycli ne hyclate 100 mg tablet 2024 025 [facility] #0315, [address] [place], [address], 09/03/2025 14:19:08 lisinopri l 40 mg tablet 2024 025 [facility] #0315, [address] [place], [address], 06/11/2025 12:02:09 cephalexi n 500 mg capsule 2023 024 [facility] #0315, [address] [place], [address], 05/22/2024 09:02:12 Patient TargetsNo targets recorded. Patient InstructionsNo instructions recorded. 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 [email or web address] [facility] [address] [address], [place], [address], 03/12/2025 09:09:39 08/22/20 25 08/20/2025 MAMMO , scree paul, digit al, bilat eral No observ ation record ed. [email or web address] [facility] [address], [place], [address], 08/22/2025 16:16:52 09/03/20 25 09/03/2025 XR, chest , 2 view No observ ation record ed. [email or web address] [facility] [address] [facility], [place], [address], 09/03/2025 16:46:58 Result Notes None recorded. 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 METS clavicles /ribs did chemo x 2 years with clearance Not Available [facility] 3 08:08:16 Disorder of lung 78724210 Active 2017 sarcoid lung 2004 Not Available [facility] 3 08:08:16 [facility] hyperten jaylyn 17986182 Active 2017 RASHARD BROWN [address] [place], [address], [facility] 5 09:36:51 Insomnia 712409938 Active 2017 Not Available [facility] 3 08:08:16 Glaucoma 18411698 Active 2017 Not Available [facility] 3 08:08:16 Cataract 248723114 Active 2017 s/p lens replaceme nt Not Available [facility] 3 08:08:16 Laryngop haryngea l reflux 360212051 Active 2017 cough Not Available [facility] 3 08:08:16 Herpes zoster 6168343 Active 2017 opthalmic us of rt eye Not Available [facility] 3 08:08:16 Pain of left shoulder joint 38078320393 056150 Active 2021 Not Available [facility] 3 08:08:16 Pain of left hip joint 20164631444 9100 Active 2021 Not Available [facility] 3 08:08:16 COVID-19 827988584 Active 2021 Not Available [facility] 3 08:08:17 Cough 71542955 Active 2021 Not Available [facility] 3 08:08:16 Gastroes ophageal reflux disease 370680340 Active 2021 Not Available [facility] 3 08:08:16 Vocal cord dysfunct ion 531440813 Active 2021 Not Available [facility] 3 08:08:16 Laryngit is 53713256 Active 2021 Not Available [facility] 3 08:08:16 Chronic cough 50251951 Active 2021 Not Available [facility] 3 08:08:17 Migraine 96845436 Active 2021 Not Available [facility] 3 08:08:16 Herpes labialis 1033705 Active 2022 Not Available [facility] 3 08:08:16 Carcinom a of breast 493378760 Active 2022 Not Available [facility] 3 08:08:16 Fatigue 42080208 Active 2022 Not Available [facility] 3 08:08:17 Pain in throat 033268865 Active 2023 RASHARD BROWN [address] [place], [address], [facility] 4 11:02:16 Malignan t neoplasm of breast 066344423 Active 2023 RASHARD BROWN [address] [place], [address], [facility] 4 11:02:38 Acute pharyngi tis 300082494 Active 2023 RASHARD BROWN [address] [place], [address], [facility] 4 11:02:47 Iron deficien cy anemia 64950062 Active 2023 RASHARD BROWN [address] [place], [address], [facility] 4 11:05:39 Pain in right foot 71333973414 9107 Active 2023 RASHARD BROWN [address] [place], [address], [facility] 4 11:08:52 Cobalami n deficien cy 027947693 Active 2023 RASHARD BROWN [address] [place], [address], [facility] 4 16:47:11 Hyperkal emia 75950203 Active 2023 RASHARD BROWN [address] [place], [address], [facility] 4 16:49:02 Avulsion of toenail of left foot 77751243333 869532 Active 2023 RASHARD BROWN [address] [place], [address], [facility] 4 14:03:24 Diarrhea 17138788 Active 2024 RASHARD BROWN [address] [place], [address], [facility] 5 09:31:27 Generali zed abdomina l pain 183484735 Active 2024 RASHARD BROWN [address] [place], [address], [facility] 5 09:32:21 Acute cough Active 2024 RASHARD BROWN [address] [place] [address], [address], [facility] 5 14:15:32 Tight chest 95224903 Active 2024 RASHARD BROWN [address] [place] [address], [address], [facility] 5 14:15:49 Problem Notes None recorded. Procedures Surgical History Date Name Laterality Status Provider Name and Address Organization Details Recorded Time 05/01/20 25 Colonoscopy completed Cas Canseco, [address], [address], [facility] 05/01/2025 19:18:50 12/29/19 19 Knee arthroscopy/jeremy alireza completed [address], [address], [facility] 04/10/2019 09:17:10 10/30/19 14 Eye Surgery completed [address], [address], [facility] 09/12/2018 09:35:26 Breast Surgery completed [facility] 01/23/2018 16:25:55 delivery completed [facility] 01/23/2018 16:27:01 Imaging Results None recorded. Procedure Notes None recorded. Medical Equipment None Reported. Allergies Allergen ID Allergen Name Allergen Category Reaction Reaction Severity Criticality Documentation Date Start Date Code Code System Note Provider Name and Address Organization Details Recorded Time 712 lisinopri l medicatio n cough Not available Not available 01/23/2018 95856 RxNorm KARTHIK KARIMI, [address], [address], [facility] 5 09:37:02 Medications Name Sig Start [...] Updated DateTime 5 175.26 cm 25.8 kg/m2 97277.6 6 g 65 /min 98 % 98 % 182/104 mm[Hg] Miriam Irizarry [facility] 5 09:22:30 Date Recorded Body height Body mass index (BMI) Body weight Heart rate Oxygen saturation Oxygen saturation in Arterial blood by Pulse oximetry Systolic And Diastolic Provider Name and Address Organization Details Last Updated DateTime 4 175.26 cm 25.1 kg/m2 82008.7 g 70 /min 98 % 98 % 140/70 mm[Hg] Maria Elena Reno [facility] 4 11:23:30 Date Recorded Body height Body mass index (BMI) Body weight Heart rate Oxygen saturation Oxygen saturation in Arterial blood by Pulse oximetry Systolic And Diastolic Provider Name and Address Organization Details Last Updated DateTime 4 175.26 cm 26.6 kg/m2 91341.6 3 g 77 /min 99 % 99 % 124/80 mm[Hg] Isidro Samuel [facility] 4 13:53:22 Date Recorded Body height Body mass index (BMI) Body weight Heart rate Oxygen saturation Oxygen saturation in Arterial blood by Pulse oximetry Systolic And Diastolic Provider Name and Address Organization Details Last Updated DateTime 4 175.26 cm 26.6 kg/m2 58986.6 3 g 66 /min 98 % 98 % 128/70 mm[Hg] Isidro Samuel [facility] 4 09:51:09 Date Recorded Body height Body mass index (BMI) Body weight Heart rate Oxygen saturation Oxygen saturation in Arterial blood by Pulse oximetry Systolic And Diastolic Provider Name and Address Organization Details Last Updated DateTime 5 175.26 cm 25.8 kg/m2 59546.6 6 g 68 /min 98 % 98 % 128/68 mm[Hg] Maria Elena Reno [facility] 5 14:01:45 Social History Question Answer Notes LastModified by Organizat ion Details LastModified Time Tobacco Smoking Status Former Smoker Not Available [facility] 09/01/2020 03:36:23 What Was The Date Of Your Most Recent Tobacco Screening? 09/03/2025 [email or web address] Information not available 09/03/2025 How Many Years Have You Smoked Tobacco? 5 [id number] Information not available 09/01/2020 Sex: Unknown Functional Status Question Answer Note LastModified by Organization D etails LastModified Time Do you or have you ever used any other forms of tobacco or nicotine? No [email or web address] Information not available 09/01/2023 Mental Status None [...] mcg/0.3 mL dose 1 completed Cas Canseco, DO [address] [facility], [place], [address], [facility] 09/22/2021 15:39:00 COVID-19, mRNA, LNP-S, PF, 30 mcg/0.3 mL dose 1 completed Ashly malin [facility] 02/08/2022 08:36:38 COVID-19, mRNA, LNP-S, PF, 30 mcg/0.3 mL dose 1 completed Ashly malin [facility] 02/08/2022 08:36:45 Influenza, split virus, quadrivalent, preservative 0 completed Ashly malin [facility] 02/08/2022 08:37:06 Tdap 0 completed Ashly malin [facility] 02/08/2022 08:37:29 COVID-19, mRNA, LNP-S, PF, 30 mcg/0.3 mL dose 2 completed Ashly Abdi [facility], [facility] 08/24/2022 07:55:11 Influenza, split virus, quadrivalent, preservative [address], [address], [facility] 09/12/2018 09:36:47 influenza, unspecified formulation 3 completed Rolo Canseco [facility] 10/27/2023 08:18:22 influenza, unspecified formulation 5 completed Miriam Irizarry [facility] 11/08/2024 08:31:55 Influenza, split virus, quadrivalent, preservative 9 completed Mary [address], [address], [facility] 11/20/2019 15:56:33 Tdap 0 completed Cas Canseco DO [address] [place] [address], [address], [facility] 08/30/2020 14:17:37 Past Encounters Encounter ID Performer Location Encounter Start Date Encounter Closed Date Diagnosis/Indication Diagnosis SNOMED-CT Code Diagnosis ICD10 Code Diagnosis IMO Codes Diagnosis Note [id number] Cas Canseco DO [facility] [address] [facility] [address] 03/06/2018 09:17:18 03/06/2018 10:24:40 Insomnia 802926424 G47.00 actually improved since bzd d/c'd. will try to get to bed earlier to improve amount of sleep Essential hypertension 37619511 I10 stable on current regimen will continue Laryngopha ryngeal reflux 802710100 K21.9 stable on current regimen, will continue [id number] Cas Canseco DO [facility] [address] [facility], [place] [address] 04/10/2018 14:09:17 04/10/2018 15:09:22 Pain in right foot 2293267987 69848 M79.671 will do xr to r/o stress fx, likely OA NSAIDS +/- tylenol rest ice bath pt declines anything controlled for pain relief Insomnia 925455109 G47.0 0 actually improved since bzd d/c'd. will try to get to bed earlier to improve amount of sleep Essential hypertension 91940524 I10 stable on current regimen will continue [id number] Cas Canseco [facility] [address] [facility],[place] [address] 09/12/2018 09:01:12 09/12/2018 09:44:36 Adult health examination 326655383 Z00.01 Active or passive immunization 678703680 Z23 Body mass index 25-29 - overweight 919400080 Z68.25 very slightly over discussed exercise regimen Gastroesop hageal reflux disease 695664490 K21.9 Vitamin D deficiency 347 06518 E55.9 [id number] Cas Canseco [facility] [address] [facility], [place] [address] 04/10/2019 09:01:11 04/10/2019 09:29:53 Body mass index 25-29 - overweight 366031040 Z68.25 has lost weight now within normal range Gastroesop hageal reflux disease 357249737 K21.9 takes omeprazole once a day with relief Vitamin D deficiency 347 64386 E55.9 normal range in september Benign ess ential hypertension 2531913 I10 very well controlled Active or passive immunization 846016490 Z23 Pain in left knee 065069 6701 57840 M25.562 Impaired f asting glycemia 190424072 R73.01 [id number] Cas Canseco [facility] [address] [facility] [place], [place] [address] 10/08/2019 16:06:53 10/08/2019 16:40:30 Plantar fasciitis 673411091 M72.2 consider wearing comfortabl e shoe as much as possible consider podiatry if sx do not improve Essential hypertension 50058243 I10 mildly elevated diastolic will monitor Carcinoma of breast 2548 11290 C50.011 in remission avoid BP in right arm [id number] Cas Canseco DO [facility] [address] [facility] [address],[place] [address] 11/20/2019 15:32:53 11/20/2019 16:12:01 Adult health examination 462699727 Z00.01 Active or passive immunization 042244137 Z23 says she 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 cough is gone now. thinks lisinopril would be cheaper [id number] Cas Canseco DO [facility] [address] [facility],[place] [address] 01/17/2020 08:58:07 01/17/2020 10:08:57 Essential hypertension 87328408 I10 back on losartan well controlled Laryngopha ryngeal reflux 929166965 K21.9 stable on current regimen, will continue Cobalamin deficiency 190 985136 E53.8 take b12 2000 units per day Hypercholesterolemia 136 48356 E78.00 borderline with high HDL continue healthy diet and will continue to monitor labs [id number] Cas Canseco DO [facility] [address] [facility],[place] [address] 08/28/2020 13:26:00 08/28/2020 13:46:29 Puncture wound of foot 11255490 S91.331A cipro [id number] Cas Canseco DO [facility] [address] [facility],[place] [address] 07/30/2021 08:29:15 07/30/2021 10:56:11 Carcinoma of breast 237554718 C50.011 had in 2002 and again 2005 2007 Essential hypertension 36444772 I10 relates on occ at home is doing ok and no prob with med Laryngopha ryngeal reflux 897138866 K21.9 stable and no sudden changes exceopt for issue with black stool Disorder of lung 3918868 1 J98.4 sarcoid of lung on bx 2004 and no issues Melena 2630170 K92.1 we will male her some heme cards and see from there [id number] Cas Canseco [facility] [address] [facility],[place] [address] 08/10/2021 14:13:36 08/10/2021 16:12:56 Occult blood detected in feces 20092464 R19.5 [id number] Cas Canseco [facility] [address] [place] [address], [place] [address] 02/09/2022 16:00:24 02/11/2022 10:09:54 Pain of left shoulder joint 4668936986 6572586 M25.512 will fu with XR shoulder, clavicle and hip for r/o possible tumor Pain of le ft hip joint 0175653399 37812 M25.552 fu with XRs [id number] RASHARD BROWN [facility] [address] [place] [address], [place] [address] 06/21/2022 11:18:28 06/21/2022 14:41:13 COVID-19 443071071 U07.1 recovering Cough 23154392 R05.2 start on pro air and pred taper [id number] Cas Canseco [facility] [address] [facility], [facility] [address] 07/12/2022 09:45:00 07/12/2022 15:54:46 Cough 76587804 R05.[address] of the chest Gastroesop hageal reflux disease 063065121 K21.00 will start with famotidine and fu with patient after trial of both the pantoprazo le and famotidine may need ENT and speech therpay Vocal cord dysfunction 750772187 R49.8 will hold on referral for now Laryngitis 23314883 J04. 0 will f/u with celecoxib given hx of GERD [id number] Cas Canseco [facility] [address] [facility],[place] [address] 07/26/2022 11:54:28 07/26/2022 13:11:58 Vocal cord dysfunction 864182367 R49.8 improving Chronic cough 40517601 R 05.3 CT was approved Gastroesop hageal reflux disease 401968874 K21.00 will restart on prilosec [id number] Cas Canseco [facility] [address] [facility],[place] [address] 09/01/2023 09:23:10 09/01/2023 10:17:51 Essential hypertension 01740275 I10 stable Gastroesop hageal reflux disease 016652275 K21.00 stable Carcinoma of breast 2548 91931 C50.011 will set up with a new oncologist used to see [facility] Fatigue 78951143 R53.83 agreed to routine blood work, before onc fu [id number] Cas Canseco [facility] [address] [facility],[place] [address] 04/02/2024 10:47:10 04/02/2024 16:52:30 Pain in throat 098353999 R07.0 will start on z thiago and send out for culture Malignant neoplasm of breast 528513586 C50.011 in remission Acute pharyngitis 353249 003 J02.8 agreed to start z thiago, waiting on culture resultsrap id negative Iron defic iency anemia 90115341 D50.8 will set up with recheck levels and a f/u appt Pain in right foot 13221 85695 54504 M79.671 will set up with with podiatry referral, her right big toe is still causing her issues Depression screening 171 974233 Z13.31 0 [id number] Cas Canseco [facility] [address] [facility] [address],[place] [address] 04/23/2024 11:08:02 04/23/2024 11:39:26 Depression screening 478897371 Z13.31 0 [id number] Cas Canseco [facility] [address] [facility] [address], [place] [address] 05/17/2024 13:44:51 05/17/2024 15:52:52 Depression screening 350737074 Z13.31 0 Avulsion o f toenail of left foot 6143304797 0692454 S91.252A will set up with Keflex for infection underneath the nailnot ready to come off yetarea cleaned and wrapped Pain in right foot 22727 15358 22488 M79.671 needs alt pod referral due to insurance change [id number] Cas Canseco [facility] [address] [facility], [place] [address] 05/24/2024 09:44:04 05/27/2024 17:33:27 Avulsion of toenail of left foot 4641294650 6803013 S91.252A will set up with Keflex for infection underneath the nailnot ready to come off yetarea cleaned and wrapped Hyperkalemia 92299625 E8 7.5 will monitor Potassium levels [id number] Cas Canseco [facility] [address] [facility] [address] 02/24/2025 09:11:58 02/24/2025 10:12:07 Diarrhea 85743388 R19.7 44926157 Generalize d abdominal pain 941939318 R10.84 826788 will set up with CTrecheck lab work Essential hypertension 77220504 I10 40511 switch back to the lisinopril , no allergy, she had GERD [id number] Cas Canseco [facility] [address] [facility], [place] [address] 09/03/2025 13:56:04 09/03/2025 16:52:07 Acute cough 8389872295 67946804 R05.8 7818525192 Tight chest 73005221 R07 .89 548321 Health Concerns Section Related Observation LastModified by Organization Detai ls LastModified Time None Recorded Concern Status LastModified by Organization Details LastModified Time None Recorded Advance Directives Directive None Recorded Payers Insurance Date Sequence Insurance Name Policy Number Policy Nugent Covered Member ID Nugent Member ID Guarantor Name 09/03/2025 1 [place] [id number] 1 Marquez Rocha [id number] Marquez Mclaughlinimes 09/03/2025 1 [place] [facility] [id number] Marquez Rocha [id number] Marquez Rocha 09/03/2025 1 [facility] [id number] Marquez Rocha [id number] Marquez Rocha 10/17/2022 1 [place] [id number] 0 Abdiel Rocha [id number] Marquez Rocha 09/03/2025 1 [facility] Marquez Rocha [id number] Marquez Mclaughlinimes Notes Date Note Type Note Provider Name a va Address Organization Details Recorded Time 04/23/2024 text/html ROS as noted in the HPI 3 week f/u the patient is doing really wellsore throat has resolved the patient is using her inhaler a little more for the residual cough the patient did do her blood work but have not received yetwill need to know her iron levels will f/u with patient after her results come in RASHARD BROWN [address] [place] [address], [address], [facility] [place] Internal [facility] 04/23/2024 11:37:48 05/17/2024 text/html ROS as noted in the HPI c/o avulsion of left toenail the patient slammed her foot into a air soft gun on the floor and caused avulsion of the toe nailnot ready to be removedarea cleaned wrapped and used toenail as protectionwill need to start as abx due to infection under the nail RASHARD BROWN [address] [place] [address], [id number], [facility], [place] [facility] 05/17/2024 14:10:08 05/24/2024 text/html ROS as noted in the HPI 1 week fu the patient is here for a f/u after a weekthe patient infection has cleared up but the toe nail is still attached to one sidehas f/u with podiatry, will try to see if they have a cancellation will see her again next week to recheck the toenailkeep area clean and protected RASHARD BROWN [address] [place], [id number], [facility], [place] [facility] 05/24/2024 10:17:07 02/24/2025 text/html c/o stomach issues the patient has been having issues with diarrhea, goes about 5 times a day, does have to go to the bathroom immediately after eating the patient gets bloating, some abdominal painno severe pain the patient was constipated prior this she was constipated, used miralax and had normal bowel movements the patient did have blood work the patient has had issues for the last two months, didn't bring it up at her last appt HTN: the patient's BP is very high, hypertensive urgency RASHARD BROWN [address] [place], [id number], [facility], [place] [facility] 02/24/2025 09:38:53 09/03/2025 text/html ROS as noted in the [...] on medications for treatment RASHARD BROWN [address] [place], [id number], [facility], [place] [facility] 09/03/2025 14:23:14 OBGyn Episode No OBEpisode recorded.
== END 2025-09-03 14:46 | disposition home or self-care (01) ==
LOC: HO.LAB 14:45
PROVIDERS: PCP Internal Medicine; Visit Provider Physician Assistant
DX: R05.1 Acute cough (principal)
CPT/HCPCS: 71046

== ENCOUNTER → 2025-09-03 14:51 | Outpatient (BNV) | payer BC, SELFPAY | PROVIDERS: PCP Internal Medicine; Visit Provider Radiology Diagnostic Radiology | DX: R05.1 Acute cough (principal) | CPT/HCPCS: 71046 ==